=== PATIENT | male | born 1950 | race Caucasian/White ===

== ENCOUNTER 2019-11-21 13:22 | Inpatient (IN) ==
[2019-11-21 14:25] LABS: Basophils % 0.6 %; Eosinophils # 0.4 K/mcL (0.0-0.6); Eosinophils % 6.2 %; Hematocrit 18.8 % (37.5-50.1); Immature Granulocytes % 0.5 % (0-4); Lymphocytes # 0.8 K/mcL (0.6-4.6); Lymphocytes % 12.2 %; Mean Corpuscular HGB Conc 30.3 g/dL (31.6-35.5); Mean Corpuscular Hemoglobin 26.1 pg (28.0-33.3); Mean Corpuscular Volume 86.2 fL (83.0-100.0); Mean Platelet Volume 9.7 fL (9.4-12.4); Monocytes # 0.7 K/mcL (0.0-1.3); Neutrophils # 4.6 K/mcL (1.6-8.9); Platelet Count 237 K/mcL (140-400); Red Blood Count 2.18 M/mcL (4.19-5.50); Red Cell Distribution Width 14.1 % (11.5-14.5); Segmented Neutrophils % 69.5 %; White Blood Count 6.6 K/mcL (4.3-11.1)
[2019-11-21 14:34] LABS: Hemoglobin 5.7 g/dL (12.9-16.9)
[2019-11-21 14:35] LABS: Alanine Aminotransferase 11 Units/L (7-52); Albumin 3.9 g/dL (3.5-5.7); Albumin/Globulin Ratio 1.5 (1.1-2.2); Alkaline Phosphatase 67 Units/L (34-104); Aspartate Amino Transferase 18 Units/L (13-39); BUN/Creatinine Ratio 21 (6-26); Bilirubin,Indirect 0.3 mg/dL (0.0-1.0); Bilirubin,Total 0.3 mg/dL (0.3-1.0); Blood Urea Nitrogen 17 mg/dL (8-23); Calcium 8.3 mg/dL (8.6-10.3); Carbon Dioxide 26 mEq/L (23-29); Chloride 101 mEq/L (98-107); Globulin 2.6 g/dL (2.4-3.5); Glucose 105 mg/dL (70-105); Osmolality,Calculated 280 (280-300); Potassium 4.3 mEq/L (3.5-5.1); Sodium 134 mEq/L (136-145); Total Protein 6.5 g/dL (6.4-8.9); Troponin I < 0.03 ng/mL (< 0.04); eGFR For African Americans > 60 (> 60); eGFR For Non-African Americans > 60 (> 60)
[2019-11-21 15:08] LABS: Hypochromasia Present (Not Present); Platelet Estimate Normal (Normal)
[2019-11-21 15:18] LABS: Bilirubin,Urine Negative (Negative); Blood,Urine Negative (Negative); Clarity,Urine Clear (Clear); Color,Urine Light-Yellow (Yellow); Glucose,Urine (UA) Normal (Normal); Ketones,Urine Negative (Negative); Leukocyte Esterase,Urine Negative (Negative); Nitrite,Urine Negative (Negative); PH,Urine 6.5 pH Units (5.0-8.0); Protein,Urine Negative (Neg-Trace); Urobilinogen,Urine Normal (Normal)
[2019-11-21] MEDS ORDERED: Ondansetron 4 MG/2 ML VIAL IVP PRN (15:29)
[2019-11-21] MEDS ORDERED: Naloxone 0.4 MG/ML INJ IVP PRN (15:29)
[2019-11-21] MEDS ORDERED: hydrOXYzine pamoate 25 MG CAPSULE PO PRN (15:30)
[2019-11-21] MEDS ORDERED: Nicotine 2 MG GUM BC PRN (15:30)
[2019-11-21] MEDS ORDERED: Perflutren Lipid Microsphere 1.3 ML in 0.9 % Sodium Chloride 8.7 ML IVP PRN (15:50)
[2019-11-21 16:18] LABS: Prothrombin Time 11.9 Seconds (9.4-12.1)
[2019-11-21 16:22] LABS: % Iron Saturation 2 % (20-55); Iron 13 mcg/dL (65-175); Transferrin 372 mg/dL (203-362)
[2019-11-21 16:34] LABS: Thyroid Stimulating Hormone 0.876 mcIU/mL (0.340-5.600)
[2019-11-21] MEDS ORDERED: DICLOFENAC SODIUM 2 GM TP SCH (17:00)
[2019-11-21] MEDS: Ringers Solution, Lactated 1,000 ML IVC SCH (18:34)
[2019-11-21] MEDS: Pantoprazole 40 MG VIAL IVP SCH ×2 (18:35→18:45)
[2019-11-21] MEDS: Melatonin 3 MG TABLET PO SCH (20:54)
[2019-11-21] MEDS: OXcarbazepine 150 MG TABLET PO SCH (20:55)
[2019-11-21] MEDS ORDERED: hydrOXYzine pamoate 25 MG CAPSULE PO SCH (21:00)
[2019-11-21] MEDS: Ipratropium/Albuterol Neb 3 ML IH PRN (21:28)
[2019-11-21 22:07] LABS: Hematocrit 20.3 % (37.5-50.1)
[2019-11-22] MEDS: Ipratropium/Albuterol Neb 3 ML IH PRN (03:46)
[2019-11-22 04:08] LABS: Immature Granulocytes % 0.4 % (0-4); Red Cell Distribution Width 14.3 % (11.5-14.5)
[2019-11-22 04:10] LABS: Basophils # 0.1 K/mcL (0.0-0.2); Basophils % 1.2 %; Eosinophils # 0.5 K/mcL (0.0-0.6); Eosinophils % 9.7 %; Hematocrit 20.4 % (37.5-50.1); Lymphocytes % 20.6 %; Mean Corpuscular HGB Conc 28.9 g/dL (31.6-35.5); Mean Corpuscular Volume 86.4 fL (83.0-100.0); Mean Platelet Volume 9.6 fL (9.4-12.4); Monocytes # 0.6 K/mcL (0.0-1.3); Monocytes % 12.5 %; Neutrophils # 2.8 K/mcL (1.6-8.9); Platelet Count 231 K/mcL (140-400); Red Blood Count 2.36 M/mcL (4.19-5.50); Segmented Neutrophils % 55.6 %
[2019-11-22 04:31] LABS: Hemoglobin 5.9 g/dL (12.9-16.9)
[2019-11-22 04:36] LABS: BUN/Creatinine Ratio 17 (6-26); Blood Urea Nitrogen 12 mg/dL (8-23); Calcium 8.5 mg/dL (8.6-10.3); Carbon Dioxide 24 mEq/L (23-29); Chloride 104 mEq/L (98-107); Glucose 104 mg/dL (70-105); Osmolality,Calculated 282 (280-300); Potassium 4.2 mEq/L (3.5-5.1); Sodium 136 mEq/L (136-145); eGFR For African Americans > 60 (> 60); eGFR For Non-African Americans > 60 (> 60)
[2019-11-22] MEDS ORDERED: 0.9 % Sodium Chloride 250 ML ONE ×2 (05:02→09:31)
[2019-11-22 05:15] LABS: Hypochromasia Present (Not Present); Platelet Estimate Normal (Normal)
[2019-11-22] MEDS: Pantoprazole 40 MG VIAL IVP SCH ×2 (05:17→18:21)
[2019-11-22] MEDS: OXcarbazepine 150 MG TABLET PO SCH ×2 (09:51→19:57)
[2019-11-22] MEDS: Nicotine 14 MG PATCH.TD24 TD SCH (09:51)
[2019-11-22] MEDS: Iron Sucrose Complex 200 MG in 0.9 % Sodium Chloride 100 ML IVPB SCH (12:34)
[2019-11-22 13:59] LABS: Hematocrit 24.9 % (37.5-50.1)
[2019-11-22 14:09] LABS: Hemoglobin 7.5 g/dL (12.9-16.9)
[2019-11-22] MEDS: *HR* Buprenorphine HCl 8 MG TAB.SUBL SL SCH ×2 (14:59→19:57)
[2019-11-22] MEDS: Ringers Solution, Lactated 1,000 ML IVC SCH (15:01)
[2019-11-22] MEDS ORDERED: SODIUM CHLORIDE/NAHCO3/KCL/PEG 4,000 ML SOLN.RECON PO ONE (17:00)
[2019-11-22] MEDS: Melatonin 3 MG TABLET PO SCH (19:57)
[2019-11-22 21:28] LABS: Hematocrit 25.4 % (37.5-50.1); Hemoglobin 7.8 g/dL (12.9-16.9)
[2019-11-23 04:24] LABS: Basophils # 0.1 K/mcL (0.0-0.2); Basophils % 0.8 %; Eosinophils # 0.5 K/mcL (0.0-0.6); Eosinophils % 7.1 %; Hematocrit 24.6 % (37.5-50.1); Hemoglobin 7.6 g/dL (12.9-16.9); Immature Granulocytes % 0.4 % (0-4); Lymphocytes # 0.9 K/mcL (0.6-4.6); Lymphocytes % 12.9 %; Mean Corpuscular HGB Conc 30.9 g/dL (31.6-35.5); Mean Corpuscular Hemoglobin 26.8 pg (28.0-33.3); Mean Corpuscular Volume 86.6 fL (83.0-100.0); Mean Platelet Volume 9.4 fL (9.4-12.4); Monocytes # 0.8 K/mcL (0.0-1.3); Monocytes % 10.9 %; Neutrophils # 4.8 K/mcL (1.6-8.9); Platelet Count 235 K/mcL (140-400); Red Blood Count 2.84 M/mcL (4.19-5.50); Red Cell Distribution Width 14.2 % (11.5-14.5); Segmented Neutrophils % 67.9 %; White Blood Count 7.1 K/mcL (4.3-11.1)
[2019-11-23 04:35] LABS: BUN/Creatinine Ratio 10 (6-26); Blood Urea Nitrogen 8 mg/dL (8-23); Calcium 8.9 mg/dL (8.6-10.3); Carbon Dioxide 26 mEq/L (23-29); Chloride 103 mEq/L (98-107); Glucose 103 mg/dL (70-105); Osmolality,Calculated 279 (280-300); Potassium 4.5 mEq/L (3.5-5.1); Sodium 135 mEq/L (136-145); eGFR For African Americans > 60 (> 60); eGFR For Non-African Americans > 60 (> 60)
[2019-11-23] MEDS: Pantoprazole 40 MG VIAL IVP SCH ×3 (07:32→17:35)
[2019-11-23] MEDS ORDERED: Lidocaine -MPF 2% 2 ML VIAL ONE (08:01)
[2019-11-23] MEDS ORDERED: Cyanocobalamin (B-12) 1,000 MCG TABLET PO SCH (09:00)
[2019-11-23] MEDS ORDERED: Venlafaxine XR (24 HR) 150 MG CAP.ER.24H PO SCH (09:00)
[2019-11-23] MEDS ORDERED: amLODIPine 5 MG TABLET PO SCH (09:00)
[2019-11-23] MEDS: OXcarbazepine 150 MG TABLET PO SCH ×2 (09:13→19:19)
[2019-11-23] MEDS: *HR* Buprenorphine HCl 8 MG TAB.SUBL SL SCH ×3 (09:13→19:19)
[2019-11-23] MEDS: Nicotine 14 MG PATCH.TD24 TD SCH (09:14)
[2019-11-23] MEDS ORDERED: 0.9 % Sodium Chloride 250 ML ONE (09:56)
[2019-11-23] MEDS: Iron Sucrose Complex 200 MG in 0.9 % Sodium Chloride 100 ML IVPB SCH (12:43)
[2019-11-23 16:46] LABS: Hematocrit 28.9 % (37.5-50.1); Hemoglobin 8.8 g/dL (12.9-16.9)
[2019-11-23] MEDS: Melatonin 3 MG TABLET PO SCH (19:19)
[2019-11-23 19:58] VITALS: BP 160/77
== END 2019-11-23 19:45 | DRG 812 ==
LOC: 2ANU 13:22 → EMEROOARM 13:22 → SUATTDRO 15:36 → 2ANU 16:18
PROVIDERS: ADMIT Student in an Organized Health Care Education/Training Program; ATTEND Internal Medicine